=== PATIENT | female | born 1945 | race Caucasian/White ===

== ENCOUNTER 2022-07-22 11:00 | Outpatient (RCR) | payer MEDICARE, SELFPAY ==
--- NOTE | 2022-05-11 14:57 | HP.OTEVAL ---
Patient's Visit Information BECCA GUAMAN is a 77 year old F, referred to Occupational Therapy by JANIS BAXTER, with a diagnosis of right extraarticular fx of lower end radius.. Date of Evaluation: 05/11/22 Occupational Therapist: Unique Nix, OTR/Maggy, CHT - Subjective This 77 year old female was seen for OT eval with dx of extraarticular fx of lower end right radius- DOI Apr 172021 while clogging (dancing) took fall on dance floor. pt states she went to ER and they ER tried to set but was unsuccessful. DOS 2021 pt arrives 1 week and 5 days s/p from ORIF. pt is limited with use of right hand/UE for ADls and IADls. Pt would like to return to her PLOF. 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 Household: Vacuum, Sweep/mop Comments: pt limited with all ADls and IADLs at this time- is doing all cooking and cleaning tasks to help- - Pain right wrist 3 Pain Intensity Range: 5 - ROM Forearm: right supination N pronation 45*left WNL Wrist: right wrist 0/25* left 65/70 CMC: right 20 left 30 MP: right 45 left 55 IP: right +20 left 65 Radial Abduction: right 30 left 55 Opposition: Kapandji Opposition right - Strength Microeconomics Professor: right NT left 60# Lateral Pinch: right NT left 10* Tripod Pinch: right NT left 6# - Quick DASH-Disab of Arm,Shoulder& Hand Quick DASH Score: 63.6350 - Goals Goal:: after 12 weeks pt will demo a increase in right cooky packer strength to 50# to increase pts ind with ADLs and IADLs by d/c Goal:: pt will demo a increase right forearm supination to 70* and pronation to 80* to increase pts ind. with ADls and IADls by d,c. pt will demo a increase in right wrist flex/ext by 40* or greater to increase pts ind. with ADls and IADls by d/c. pt will demo the ability to form composite fist to hold small objects for daily occupations by d/c Goal:: pt will report no pain greater than 2/10 with use of left hand with ADls and IADls by d/c Goal:: pt will demo understanding scar mtg. to decrease scar adhesions by end of 4th visit. - Rehabilitation General Assessment: pt arrives 1 week and 5 days s/p ORIF of right radius - pt arrives in custom orthosis demo limited ROM newly healing structures- sutures in tact- pt demo risk of scar adhesions- and currently demo with limited ROM of wrist/forearm and forming a composite fist. pt would benefit from skilled OT services 2-3x week for 6 -12 week. Rehabilitation Potential: Good - Anticipated Interventions A/AAROM/PROM, Strengthening, Scar Care, Triggerpoint Release, Modalities, Joint Protection/Energy Conservation, Ergonomic Education, Fine Motor Coord/Jean Carlos, Education re Diagnosis, Caregiver Training, Home Program - Visit Plan Frequency: 2-3x /Week Duration: 6 Weeks General Plan: therapy will initiate AROM of shoulder- elbow- forearm and digits along with comfort ROM of wrist flex/ext-. 6 weeks s/p initiate PRE as pt zina. TEXT: Thank you for the opportunity to evaluate your patient. For Medicare and Medicare HMO plans, please review the plan of care and approve it. It will need to be FAXED BACK to us at [phone] for Medicare purposes. Please let me know if there are questions or concerns regarding this plan of care. Physician Signature: Date:
--- NOTE | 2022-06-17 11:37 | HP.OTREVAL ---
JANIS BAXTER, It has been my pleasure to treat BECCA GUAMAN over the last 14 visits for right extraarticular fx of lower end radius.. Please see the progress note below for an update on the occupational therapy plan of care! Subjective: pt states she can now tie her shoes and putting on her earrings on and neckless- pt states she can do most things but does notice the strength is not is not there. Pt also limited with UP flex of he thumb - with blocking pt is able to get IP flexion just not on her own- pt would like to increase her strength and ROM as much as possible next few weeks. Objective/Function: right wrist 40/40 increase from 0/25 at initial eval. right forearm supination 55* pronation 65*. right plant associate 18# left 53#. right lateral pinch 4#. right tripod pinch 2#. pt demo with weakness increasing need of assistance with ADLs and IADl at home- pt would benefit from skilled OT services 2-3x week for 4 weeks. Plan Frequency: 2-3x /Week Duration: 4 Weeks Plan: cont with BTE and initiate free wt- shoulder flex/ext/ biceps. scar mtg and IP flexion of thumb to increase pts pinch Goals - Goals Patient Goals: Regain Mobility, Use Hand/Wrist/Arm Normally Again, Be More Independent in ADLS Goal:: after 12 weeks pt will demo a increase in right plant associate strength to 50# to increase pts ind with ADLs and IADLs by d/c Goal:: pt will demo a increase right forearm supination to 70* and pronation to 80* to increase pts ind. with ADls and IADls by d,c. pt will demo a increase in right wrist flex/ext by 40* or greater to increase pts ind. with ADls and IADls by d/c. pt will demo the ability to form composite fist to hold small objects for daily occupations by d/c Goal:: pt will report no pain greater than 2/10 with use of left hand with ADls and IADls by d/c Goal:: pt will demo understanding scar mtg. to decrease scar adhesions by end of 4th visit. Anticipated Interventions Anticipated Interventions: A/AAROM/PROM, Strengthening, Scar Care, Triggerpoint Release, Modalities, Joint Protection/Energy Conservation, Ergonomic Education, Fine Motor Coord/Jean Carlos, Education re Diagnosis, Caregiver Training, Home Program Please do not hesitate to contact me at [phone] by phone or if you have questions or concerns regarding this new plan of care! Sincerely, Unique Nix, OTR/L, CHT
--- NOTE | 2022-07-02 08:14 | HP.OTREVAL ---
JANIS BAXTER, It has been my pleasure to treat BECCA GUAMAN over the last 18 visits for right extraarticular fx of lower end radius.. Please see the progress note below for an update on the occupational therapy plan of care! Subjective: Pt is P/S 9 weeks from ORIF. Pt stated that she danced last night in the barn and did well. Pt stated she continues to do stretches and exercises. Pt goes to on Tuesday; they plan to take x-rays to see how it is healing. Objective/Function: right director group sales 35# left 60#. right lateral pinch 12#, left-12#. right tripod pinch 8#, left- 15#. right wrist 40/40 increase from 0/25 at initial eval. right forearm supination 55* pronation 65. pt has made gains with her strength and is reporting increase use of right UE with daily tasks. Plan Plan: pt to return to Tuesday will see if he feels it is necessary to cont. Pt could cont. with a HEP to continue her recovery. Goals - Goals Patient Goals: Regain Mobility, Use Hand/Wrist/Arm Normally Again, Be More Independent in ADLS Goal:: after 12 weeks pt will demo a increase in right director group sales strength to 50# to increase pts ind with ADLs and IADLs by d/c Goal:: pt will demo a increase right forearm supination to 70* and pronation to 80* to increase pts ind. with ADls and IADls by d,c. pt will demo a increase in right wrist flex/ext by 40* or greater to increase pts ind. with ADls and IADls by d/c. pt will demo the ability to form composite fist to hold small objects for daily occupations by d/c Goal:: pt will report no pain greater than 2/10 with use of left hand with ADls and IADls by d/c Goal:: pt will demo understanding scar mtg. to decrease scar adhesions by end of 4th visit. Anticipated Interventions Anticipated Interventions: A/AAROM/PROM, Strengthening, Scar Care, Triggerpoint Release, Modalities, Joint Protection/Energy Conservation, Ergonomic Education, Fine Motor Coord/Jean Carlos, Education re Diagnosis, Caregiver Training, Home Program Please do not hesitate to contact me at [phone] by phone or if you have questions or concerns regarding this new plan of care! Sincerely, Unique Nix, OTR/L, CHT
--- NOTE | 2022-07-22 11:40 | HP.OTDCSUM_ITS ---
It has been my pleasure to treat BECCA GUAMAN under orders from JANIS BAXTER, for the diagnosis of right extraarticular fx of lower end radius. for a total of 24 visit(s). Please see the following information for a summary of their discharge status. % Improvement: 98 Objective/Function: right wrist ROM 50/60 increase from 0/25. right forearm supination 70* increase from 0. right guest history clerk strength 35#. right lateral pinch 8#. right tripod pinch 10#. opposition. pt denies numbness and tingling. pt has been ed. on dx and process in healing.pt demo understanding. Patient Goals: Regain Mobility, Use Hand/Wrist/Arm Normally Again, Be More Independent in ADLS Goal:: after 12 weeks pt will demo a increase in right guest history clerk strength to 50# to increase pts ind with ADLs and IADLs by d/c Goal:: pt will demo a increase right forearm supination to 70* and pronation to 80* to increase pts ind. with ADls and IADls by d,c. pt will demo a increase in right wrist flex/ext by 40* or greater to increase pts ind. with ADls and IADls by d/c. pt will demo the ability to form composite fist to hold small objects for daily occupations by d/c Goal:: pt will report no pain greater than 2/10 with use of left hand with ADls and IADls by d/c Goal:: pt will demo understanding scar mtg. to decrease scar adhesions by end of 4th visit. Plan: D/C Discharge Comments: pt was seen for 12 OT session following a right distal radius fx 12 weeks s/p ORIF. pt has made great gains in her ROM and strength- pt has met OT goals and at this time is d/c. Pt has initiated a health and wellness at the [facility]. If there are questions or concerns regarding this patient's occupational therapy, please fell free to call me at [phone]. Thank you for the referral of this patient. Sincerely, Unique Nix, OTR/L, CHT
== END 2022-07-22 14:02 | disposition home or self-care (01) ==
LOC: OT 11:00
PROVIDERS: PCP Internal Medicine
DX: S52.551D Other extraarticular fracture of lower end of right radius, subsequent encounter for closed fracture with routine healing (principal)
CPT/HCPCS: 97110; 97140; 97166; 97530

== ENCOUNTER 2022-12-19 16:37 | Emergency (ER) | payer MEDICARE, SELFPAY ==
[2022-12-19] VITALS (7 sets, daily range): BP systolic 116–152; BP diastolic 50–73; PULSE 67–103; RESP 16–30; TEMP 37–37.7; O2SAT 97; BMI 25.7
--- NOTE | 2022-12-19 16:58 | EKG12_ITS ---
Test Reason : Blood Pressure : / mmHG Vent. Rate : 087 BPM Atrial Rate : 087 BPM P-R Int : 182 ms QRS Dur : 102 ms QT Int : 354 ms P-R-T Axes : 074 045 067 degrees QTc Int : 425 ms Sinus rhythm with marked sinus arrhythmia Otherwise normal ECG Confirmed by YESSENIA MADISON, FELIZ ([id number]), news copy editor NETTIE ARIAS ([id number]) on 12/21/2022 8:13:19 AM Referred By: CHRISTOPHER Confirmed By:FELIZ CASAS MD
[2022-12-19] MEDS: 0.9% Normal Saline 1,000 ML 999 ML IV (17:08)
[2022-12-19 17:17] LABS: Absolute Lymphocyte Count 0.39 X10^3/uL (0.83-4.51); Absolute Neutrophil Count 9.1 X10^3/uL (2.0-7.7); Basophil# 0.02 X10^3/uL; Basophil% 0.2 % (0-1); Hematocrit 34.3 % (37-47); Hemoglobin 11.6 g/dL (12.0-15.0); Lymphocyte # 0.39 X10^3/ul (0.83-4.51); Lymphocyte % 3.8 % (19-41); Mean Corp Hgb Conc 33.8 g/dL (32-36); Mean Corpuscular Hgb 30.5 pg (27.0-32.0); Mean Corpuscular Volume 90.3 fL (81-99); Mean Platelet Vol. 10.5 fl (6.2-12.0); Monocyte# 0.62 X10^3/uL; Monocyte% 6.1 % (0-10); NRBC Flagged by Analyzer 0 % (0-5); Neutrophil # 9.12 X10^3/uL (2.7-7.7); Neutrophil % 89.1 % (47-70); POSITIVE DIFFERENTIAL YES; Platelet Count 119 K/mm3 (150-450); RBC Distribution Width CV 13.4 % (11.6-14.6); RBC Distribution Width SD 44.4 fl (35.1-43.9); White Blood Count 10.2 K/mm3 (4.4-11.0)
--- NOTE | 2022-12-19 17:19 | EX.ED.DYSGE1 ---
HPI <ANU Quezada - Last Filed: 12/19/22 19:19> History of Present Illness Chief Complaint: Fever Narrative Narrative: 77-year-old female history of hypertension, the bladder, muscle cramps who presents to the emergency department with 2 days of fever and chills. Per the family member, the patient has had a fever as high as 104. Patient was in [place] for a dance tournament, she states that she felt weak, did not feel like dancing. She states to feel somewhat short of breath, she also complains of urinary retention and frequency. She denies any back pain however states both hips are hurting as well as both shoulders. She denies any headache. She denies any cough. Patient denies any sick contacts. PFS <ANU Quezada - Last Filed: 12/19/22 19:19> [facility] Medical History (Updated 12/19/22 @ 19:18 by ANU Quezada) Hypertension Home Medications amlodipine 5 mg tablet 5 mg PO DAILY 12/19/22 [History Last Taken Unknown] baclofen 20 mg tablet 20 mg PO DAILY 12/19/22 [History Last Taken Unknown] cephalexin 500 mg capsule 500 mg PO TID 7 days #21 caps 12/19/22 [Rx Last Taken Unknown] hydrochlorothiazide 25 mg tablet 25 mg PO DAILY 12/19/22 [History Last Taken Unknown] oxybutynin chloride 5 mg tablet 10 mg PO BID 12/19/22 [History Last Taken Unknown] Allergy/AdvReac Type Severity Reaction Status Date / Time No Known Allergies Allergy Verified 12/19/22 16:39 Social History Smoking Status: Never smoker ROS <ANU Quezada - Last Filed: 12/19/22 19:19> ROS ED ROS Narrative Constitutional: Negative for weight loss, weakness. Positive for fever and chills Eyes: Negative for vision loss, vision change, double vision ENT: Negative for any sore throat, ear pain, congestion Cardiovascular: Negative for any chest pain, tightness, palpitations Respiratory: Negative for any cough, sputum production, hemoptysis, dyspnea on exertion, orthopnea. Positive for dyspnea Gastrointestinal: Negative for any abdominal pain, nausea, vomiting, diarrhea, constipation, blood in stool, blood in vomit : Negative for any blood in urine. Positive for urinary frequency, dysuria, retention Muscle skeletal: Negative for any muscle joint pain, stiffness, arthralgias, neck pain, back pain. Positive for myalgias Neurological: Negative for any headache, syncope, numbness or tingling, dizziness Skin: Negative for any rashes, lumps, itching, abrasions, lacerations Psychiatric: Negative for any depression, anxiety, stress, suicidal ideation, homicidal ideation Hematologic: Negative for any easy bruising, excessive bruising, easy bleeding Allergies: Negative for any eczema, hives, rash EXAM <ANU Quezada - Last Filed: 12/19/22 19:19> Physical Exam Narrative Exam Narrative: Vital signs reviewed. Patient is febrile here, repeat temperature 101. Last dose of Tylenol was at 3:30 PM HEET: Head normocephalic atraumatic, TMs clear bilaterally. Posterior pharynx is clear, dry mucous membranes. Nares clear bilaterally. Neck: Supple with no lymphadenopathy or tenderness. No signs of meningismus, negative jolt sign. Cardiac: Regular rate and rhythm no murmurs gallops or rubs, equal peripheral pulses bilaterally. Respiratory: Lungs clear to auscultation bilaterally. No chest tenderness. Abdomen: Soft, nontender, nondistended. No abdominal bruit or pulsatile masses. No hepatosplenomegaly Extremities: No peripheral edema, no signs of gross trauma or deformity. Active full range of motion of all extremities. Neuro: Cranial nerves II through XII intact, no focal neurological deficits. Skin: Clean dry and intact with no rash, purpura, petechiae, vesicles or pustules. Backs/flank: No CVA tenderness, no midline spinal tenderness, no deformity. Psych: Normal mood and affect. No SI, HI or acute psychosis. Const Vital Signs: 12/19/22 16:37 12/19/22 17:14 12/19/22 17:15 Temperature 99.4 F H Temperature Source Oral Pulse Rate 103 H Respiratory Rate 16 Respiratory Effort Normal Respiratory Pattern Normal Blood Pressure 152/73 H Blood Pressure Mean 99 Pulse Ox 97 97 Oxygen Delivery Method Room Air Room Air 12/19/22 18:20 12/19/22 19:04 12/19/22 19:44 Temperature 99.9 F H 98.6 F Temperature Source Oral Oral Pulse Rate 87 80 Respiratory Rate 30 H 18 Respiratory Effort Respiratory Pattern Blood Pressure 122/50 H 121/63 H Blood Pressure Mean 74 82 Pulse Ox Oxygen Delivery Method 12/19/22 20:32 Temperature Temperature Source Pulse Rate 81 Respiratory Rate 23 H Respiratory Effort Respiratory Pattern Blood Pressure 120/60 Blood Pressure Mean 80 Pulse Ox 97 Oxygen Delivery Method Room Air Positive well nourished and well developed General Appearance ED: well developed <Dr. Doris Vo MD - Last Filed: 12/19/22 20:43> Physical Exam Const Vital Signs: 12/19/22 16:37 12/19/22 17:14 12/19/22 17:15 Temperature 99.4 F H Temperature Source Oral Pulse Rate 103 H Respiratory Rate 16 Respiratory Effort Normal Respiratory Pattern Normal Blood Pressure 152/73 H Blood Pressure Mean 99 Pulse Ox 97 97 Oxygen Delivery Method Room Air Room Air 12/19/22 18:20 12/19/22 19:04 12/19/22 19:44 Temperature 99.9 F H 98.6 F Temperature Source Oral Oral Pulse Rate 87 80 Respiratory Rate 30 H 18 Respiratory Effort Respiratory Pattern Blood Pressure 122/50 H 121/63 H Blood Pressure Mean 74 82 Pulse Ox Oxygen Delivery Method 12/19/22 20:32 Temperature Temperature Source Pulse Rate 81 Respiratory Rate 23 H Respiratory Effort Respiratory Pattern Blood Pressure 120/60 Blood Pressure Mean 80 Pulse Ox 97 Oxygen Delivery Method Room Air MDM <ANU Quezada - Last Filed: 12/19/22 19:19> MDM Lab Data Labs: Laboratory Results - last 24 hr 12/19/22 12/19/22 12/19/22 17:05 17:05 17:05 WBC 10.2 RBC 3.80 L Hgb 11.6 L Hct 34.3 L MCV 90.3 MCH 30.5 MCHC 33.8 RDW Std Deviation 44.4 H RDW Coeff of Macey 13.4 Plt Count 119 L MPV 10.5 Immature Gran % (Auto) 0.800 Neut % (Auto) 89.1 H Lymph % (Auto) 3.8 L [place] % (Auto) 6.1 Eos % (Auto) 0.0 Baso % (Auto) 0.2 Absolute Neuts (auto) 9.1 H Absolute Lymphs (auto) 0.39 L Nucleated RBC % 0 Differential Comment SCANNED PT 14.7 INR 1.2 APTT 37.5 H Sodium 131 L Potassium 2.8 L Chloride 96 L Carbon Dioxide 23.0 Anion Gap 12 BUN 25 H Creatinine 1.10 H Estim Creat Clear Calc 46.18 Est GFR (MDRD) Af Amer 62 Est GFR (MDRD) Non-Af 51 L BUN/Creatinine Ratio 22.7 H Glucose 133 H Lactic Acid Calcium 8.4 L Total Bilirubin 0.80 AST 58 H ALT 67 H Alkaline Phosphatase 108 Total Protein 6.7 Albumin 3.0 L Globulin 3.7 Albumin/Globulin Ratio 0.8 L Urine Color Urine Clarity Urine pH Ur Specific C[place] Urine Protein Urine Glucose (UA) Urine Ketones Urine Occult Blood Urine Nitrite Urine Bilirubin Urine Urobilinogen Ur Leukocyte Esterase Urine RBC Urine WBC Ur Squamous Epith Cells Urine Bacteria Urine Mucus 12/19/22 12/19/22 17:05 18:00 WBC RBC Hgb Hct MCV MCH MCHC RDW Std Deviation RDW Coeff of Macey Plt Count MPV Immature Gran % (Auto) Neut % (Auto) Lymph % (Auto) [place] % (Auto) Eos % (Auto) Baso % (Auto) Absolute Neuts (auto) Absolute Lymphs (auto) Nucleated RBC % Differential Comment PT INR APTT Sodium Potassium Chloride Carbon Dioxide Anion Gap BUN Creatinine Estim Creat Clear Calc Est GFR (MDRD) Af Amer Est GFR (MDRD) Non-Af BUN/Creatinine Ratio Glucose Lactic Acid 1.6 Calcium Total Bilirubin AST ALT Alkaline Phosphatase Total Protein Albumin Globulin Albumin/Globulin Ratio Urine Color Yellow Urine Clarity Cloudy Urine pH 6.5 Ur Specific [place] 1.010 Urine Protein 100 H Urine Glucose (UA) Normal Urine Ketones 50 H Urine Occult Blood 250 H Urine Nitrite Positive H Urine Bilirubin Negative Urine Urobilinogen 1 H Ur Leukocyte Esterase 500 H Urine RBC 10-25 SEEN Urine WBC 25-50 SEEN Ur Squamous Epith Cells 0 SEEN Urine Bacteria 3+ Urine Mucus 0 SEEN Radiography Diagnostic Testing: Clinical Impression(s) from Imaging Studies Chest X-Ray 12/19/22 17:30 IMPRESSION: No acute radiographic abnormalities. Electronically Signed: Marc Tinajero MD at 18:08 EDT , Treatment and Re-Evaluation :: All radiologic examinations were read, reviewed by the emergency department attending. From these reads, a plan of care will be put in place. Patient arrives fever, body aches, tachycardic, fever of 101 here. Patient presents to the emergency department with difficulty urinating over the last 2 to 3 weeks, 2 days of body pain, fever and chills. Secondary the patient's vital signs, patient did receive a septic work-up with 2 sets of blood cultures. Patient physical examination shows some dehydration, remainder vital signs are stable. Concerning for UTI, pneumonia, COVID-19 or influenza. Chest x-ray was grossly unremarkable. Patient's laboratory values showed a CBC that shows slight anemia with a hemoglobin 11.6. Chemistry showed hyponatremia with sodium 131, hypokalemia with a sodium of 2.8 creatinine is 1.1 liver enzymes slightly elevated at 58 and 67 alkaline phosphate is normal. Patient's urinalysis showed infection with 3+ bacteria white blood cells, red blood cells, leukocytes as well as positive nitrates. Influenza, COVID-19 rapid test were negative. Patient was given 2 L of normal saline, ibuprofen here for the fever. Patient will be treated for UTI, urine culture sent, IV Rocephin given. Patient will be given 40 mill equivalents p.o. potassium as well as 20 mEq IV potassium. On reassessment, patient was feeling much better. We did discuss admission however patient would like to be discharged home. Patient's vital signs improved, patient's fever decreased with antipyretics. At this time, patient be placed on Keflex 3 times a day for 7 days. She will maintain hydration, she will follow-up closely with her PCP for recheck. She was given strict return precaution to return for worsening back pain, fever chills nausea vomiting in the next 48 hours. She is agreeable with the plan, I spoke with the patient's who is bedside, he verbally understands and no other questions. <Dr. Doris Vo MD - Last Filed: 12/19/22 20:43> [facility] Lab Data Labs: Laboratory Results - last 24 hr 12/19/22 12/19/22 12/19/22 17:05 17:05 17:05 WBC 10.2 RBC 3.80 L Hgb 11.6 L Hct 34.3 L MCV 90.3 MCH 30.5 MCHC 33.8 RDW Std Deviation 44.4 H RDW Coeff of Macey 13.4 Plt Count 119 L MPV 10.5 Immature Gran % (Auto) 0.800 Neut % (Auto) 89.1 H Lymph % (Auto) 3.8 L [place] % (Auto) 6.1 Eos % (Auto) 0.0 Baso % (Auto) 0.2 Absolute Neuts (auto) 9.1 H Absolute Lymphs (auto) 0.39 L Nucleated RBC % 0 Differential Comment SCANNED PT 14.7 INR 1.2 APTT 37.5 H Sodium 131 L Potassium 2.8 L Chloride 96 L Carbon Dioxide 23.0 Anion Gap 12 BUN 25 H Creatinine 1.10 H Estim Creat Clear Calc 46.18 Est GFR (MDRD) Af Amer 62 Est GFR (MDRD) Non-Af 51 L BUN/Creatinine Ratio 22.7 H Glucose 133 H Lactic Acid Calcium 8.4 L Total Bilirubin 0.80 AST 58 H ALT 67 H Alkaline Phosphatase 108 Total Protein 6.7 Albumin 3.0 L Globulin 3.7 Albumin/Globulin Ratio 0.8 L Urine Color Urine Clarity Urine pH Ur Specific [place] Urine Protein Urine Glucose (UA) Urine Ketones Urine Occult Blood Urine Nitrite Urine Bilirubin Urine Urobilinogen Ur Leukocyte Esterase Urine RBC Urine WBC Ur Squamous Epith Cells Urine Bacteria Urine Mucus 12/19/22 12/19/22 17:05 18:00 WBC RBC Hgb Hct MCV MCH MCHC RDW Std Deviation RDW Coeff of Macey Plt Count MPV Immature Gran % (Auto) Neut % (Auto) Lymph % (Auto) [place] % (Auto) Eos % (Auto) Baso % (Auto) Absolute Neuts (auto) Absolute Lymphs (auto) Nucleated RBC % Differential Comment PT INR APTT Sodium Potassium Chloride Carbon Dioxide Anion Gap BUN Creatinine Estim Creat Clear Calc Est GFR (MDRD) Af Amer Est GFR (MDRD) Non-Af BUN/Creatinine Ratio Glucose Lactic Acid 1.6 Calcium Total Bilirubin AST ALT Alkaline Phosphatase Total Protein Albumin Globulin Albumin/Globulin Ratio Urine Color Yellow Urine Clarity Cloudy Urine pH 6.5 Ur Specific [place] 1.010 Urine Protein 100 H Urine Glucose (UA) Normal Urine Ketones 50 H Urine Occult Blood 250 H Urine Nitrite Positive H Urine Bilirubin Negative Urine Urobilinogen 1 H Ur Leukocyte Esterase 500 H Urine RBC 10-25 SEEN Urine WBC 25-50 SEEN Ur Squamous Epith Cells 0 SEEN Urine Bacteria 3+ Urine Mucus 0 SEEN Radiography Diagnostic Testing: Clinical Impression(s) from Imaging Studies Chest X-Ray 12/19/22 17:30 IMPRESSION: No acute radiographic abnormalities. Electronically Signed: Marc Tinajero MD at 18:08 EDT , Treatment and Re-Evaluation :: All radiologic examinations were read, reviewed by the emergency department attending. From these reads, a plan of care will be put in place. Patient arrives fever, body aches, tachycardic, fever of 101 here. Patient presents to the emergency department with difficulty urinating over the last 2 to 3 weeks, 2 days of body pain, fever and chills. Secondary the patient's vital signs, patient did receive a septic work-up with 2 sets of blood cultures. Patient physical examination shows some dehydration, remainder vital signs are stable. Concerning for UTI, pneumonia, COVID-19 or influenza. Chest x-ray was grossly unremarkable. Patient's laboratory values showed a CBC that shows slight anemia with a hemoglobin 11.6. Chemistry showed hyponatremia with sodium 131, hypokalemia with a sodium of 2.8 creatinine is 1.1 liver enzymes slightly elevated at 58 and 67 alkaline phosphate is normal. Patient's urinalysis showed infection with 3+ bacteria white blood cells, red blood cells, leukocytes as well as positive nitrates. Influenza, COVID-19 rapid test were negative. Patient was given 2 L of normal saline, ibuprofen here for the fever. Patient will be treated for UTI, urine culture sent, IV Rocephin given. Patient will be given 40 mill equivalents p.o. potassium as well as 20 mEq IV potassium. On reassessment, patient was feeling much better. We did discuss admission however patient would like to be discharged home. Patient's vital signs improved, patient's fever decreased with antipyretics. At this time, patient be placed on Keflex 3 times a day for 7 days. She will maintain hydration, she will follow-up closely with her PCP for recheck. She was given strict return precaution to return for worsening back pain, fever chills nausea vomiting in the next 48 hours. She is agreeable with the plan, I spoke with the patient's who is bedside, he verbally understands and no other questions. Patient seen and evaluated with ARMAAN. I personally interviewed and examined the patient. I was involved in all aspects of patient's orders, interpretation of results, and treatment. Patient presents secondary to fever and generalized fatigue. She states she has not felt her normal self for the past 3 or 4 days and feels that she has to urinate frequently but only goes small amounts. She noted a fever this afternoon up to 104. Patient sitting upright in bed no acute distress. She is nontoxic-appearing. Head and neck examination unremarkable. Heart is slightly tachycardic but regular. Lung sounds are clear with good air movement bilaterally. Abdomen is soft and nontender. Extremity examination reveals full range of motion at all joints with no evidence of infection. Infectious work-up was undertaken. CBC reveals a normal white count at 10.2 with 89% neutrophils. Chemistry studies significant for a sodium of 131, chloride 96, potassium 2.8. Her glucose is 133. LFTs reveal an AST of 58 and ALT of 67. Lactic acid is normal at 1.6. Urinalysis does reveal infection with 3+ bacteria, 25-50 white cells, positive nitrites. Swab for COVID and influenza is negative. Chest x-ray reveals no evidence of focal infiltrate per my interpretation. Patient is given 40 mill equivalents of oral potassium as well as 20 mill equivalents IV. IV Rocephin has been ordered. Blood and urine cultures have been sent. Patient will be sent home with Keflex as well as oral potassium replacement. Return instructions provided. Discharge Plan Triage Chief Complaint: Fever Other Complaint: Complaint ED Midlevel Provider: Kurt Banerjee ED Provider: Doris Vo Dx/Rx/DC Orders Clinical Impression: Urinary tract infection, Acute dehydration, Acute hypokalemia Instructions: ED Dehydration (Adult), ED Hypokalemia, ED Cystitis Female Adult Prescriptions: New cephalexin 500 mg capsule 500 mg PO TID 7 Days Qty: 21 0RF No Action amlodipine 5 mg tablet 5 mg PO DAILY baclofen 20 mg tablet 20 mg PO DAILY hydrochlorothiazide 25 mg tablet 25 mg PO DAILY oxybutynin chloride 5 mg tablet 10 mg PO BID Primary Care Provider: Johnny Renae Referrals: Johnny Renae MD [Primary Care Provider] - Activity Restrictions/Additional Instructions: You need to follow-up with your PCP regarding your potassium as well as your urinary tract infection for recheck. Continue take Tylenol. Take antibiotics until finished. The bottle should be thrown away empty. Return for any worsening pain, fever chills nausea or vomiting. Disposition Disposition: Home, Self Care
[2022-12-19] MEDS: Ibuprofen 200 MG Tablet 400 MG PO (17:21)
--- NOTE | 2022-12-19 17:30 | RAD_ITS ---
INDICATION: cough EXAMINATION/TECHNIQUE: X-RAY - XR Chest 2 Views COMPARISON: None. FINDINGS: The lungs are clear. Tortuous and calcified thoracic aorta. The heart is borderline enlarged. No pleural effusion or pneumothorax. Degenerative changes of the thoracic spine. RAD/Chest PA and Lateral IMPRESSION: No acute radiographic abnormalities. Electronically Signed: Marc iTnajero MD at 18:08 EDT ,
[2022-12-19 17:32] LABS: International Normalized Ratio 1.2; Prothrombin Time (Protime)PT. 14.7 SECONDS (11.7-14.9)
[2022-12-19 17:33] LABS: Partial Thromboplast Time 37.5 Seconds (24.1-36.2)
[2022-12-19 17:41] LABS: Lactic Acid 1.6 mmol/L (0.4-1.9)
[2022-12-19 17:45] LABS: Differential Indicated SCAN CRITERIA MET
[2022-12-19 17:59] LABS: ALB/GLOB Ratio 0.8 RATIO (0.9-2.4); AST(SGOT) 58 U/L (15-37); Alanine Aminotransfer ALT/SGPT 67 U/L (13-56); Alkaline Phosphatase 108 U/L (45-117); Anion Gap 12 (5-15); BUN 25 mg/dL (7-18); BUN/Creat Ratio 22.7 RATIO (10-20); Calcium,Total 8.4 mg/dL (8.5-10.1); Chloride 96 mmol/L (98-107); EST Glomerular Filtration Rate 51 mL/min (>60); Est Glom Filt Rate - Afr Amer 62 mL/min (>60); Estimated Creatinine Clearance 46.18 ml/min; Globulin 3.7 g/dL (2.2-4.2); Glucose 133 mg/dL (74-106); Potassium 2.8 mmol/L (3.5-5.1); Protein, Total 6.7 g/dL (6.4-8.2); Sodium Level 131 mmol/L (136-145)
[2022-12-19 18:04] LABS: Mucous, Urine 0 SEEN /hpf (<or=2+); Squamous Epithelial Cells - UA 0 SEEN /hpf (5-10)
[2022-12-19 18:07] LABS: Color, Urine Yellow (Yellow); Glucose, Dipstick Normal (Normal); Ketone-Dipstick 50 mg/dl (Negative); Leukocyte Esterase-Dipstick 500 /ul (Negative); Nitrite-Dipstick Positive (Negative); Occult Blood-Urine 250 /ul (Negative); Protein-Dipstick 100 mg/dl (Negative); Urine Bilirubin Dipstick Negative (Negative); Urine Clarity Cloudy (Clear); Urine Urobilinogen 1 mg/dl (Normal); Urine pH 6.5 (5.0 - 8.0)
[2022-12-19 18:14] LABS: Differential Comment SCANNED
[2022-12-19 18:17] LABS: Red Blood Cells-Urine 10-25 SEEN /hpf (0-5); White Blood Cells 25-50 SEEN /hpf (0-5)
[2022-12-19 18:18] LABS: Bacteria 3+ /hpf (None Seen)
[2022-12-19] MEDS: Ceftriaxone 1 GM/50 ML BAG IV (19:03)
[2022-12-19] MEDS: Potassium Chloride Oral Tablet 20 MEQ 40 MEQ PO (19:10)
[2022-12-19] MEDS: Potassium Chloride 10mEq/100mL 10 MEQ/100 ML IV.SOLN. 100 MEQ IV BOLUS ×2 (19:40→20:50)
[2022-12-19] MEDS: Acetaminophen 500 MG Tablet 1000 MG PO (20:42)
== END 2022-12-19 22:01 | disposition home or self-care (01) ==
PROVIDERS: Nurse Practitioner; Emergency Provider Emergency Medicine; PCP Internal Medicine; Visit Provider Emergency Medicine
DX: N39.0 Urinary tract infection, site not specified (principal); E86.0 Dehydration; I10 Essential (primary) hypertension; E87.6 Hypokalemia; Z79.899 Other long term (current) drug therapy
CPT/HCPCS: 71046; 80053; 81001; 83605; 85025; 85610; 85730; 87040; 87077; 87086; 87088; 87186; 87428; 93005; 96361; 96365; 99284; J7030; A4216